=== PATIENT | female | born 1985 | race Caucasian/White ===

== ENCOUNTER 2022-03-05 20:00 | Inpatient (IN) | payer OTHER ==
[2022-03-05] MEDS ORDERED: DINOPROSTONE 10 MG VAGINAL SUPPOSITORY VG ONE (21:15)
[2022-03-05 21:46] LABS: BASO % 0.3 % (0-2.0); EOS % 0.7 % (0-4.5); HEMATOCRIT 34.4 % (32.4-45.2); HEMOGLOBIN 11.9 GM/dL (10.7-15.3); LYMPH % 18.2 % (8-40); MCH 29.5 pg (25.7-33.7); MCHC 34.6 g/dl (32.0-36.0); MEAN CELL VOLUME 85.3 fl (80-96); MEAN PLT VOLUME 7.6 fl (7.5-11.1); NEUT % 75.8 % (42.8-82.8); PLATELET COUNT 206 10^3/uL (134-434); RBC 4.03 M/mm3 (3.60-5.2); WHITE BLOOD COUNT 10.7 K/mm3 (4.0-10.0)
[2022-03-05 21:56] LABS: INR 1.01 (0.83-1.09); PROTHROMBIN TIME (PATIENT) 11.6 SEC (9.7-13.0)
[2022-03-05 21:59] LABS: ACTIVATED PTT 25.5 SECONDS (25.2-36.5)
[2022-03-05 22:23] LABS: CALCIUM 9.1 mg/dL (8.5-10.1)
[2022-03-05 22:29] LABS: CREATININE 0.4 mg/dL (0.55-1.3)
[2022-03-05 22:34] VITALS: BMI 44.9
[2022-03-05 23:18] LABS: HIV INTERPRETATION NEGATIVE (NEGATIVE)
[2022-03-06] MEDS ORDERED: ACETAMINOPHEN 325 MG TABLET (FP) PO ONE (06:00)
[2022-03-06] MEDS ORDERED: DEXTROSE 5%-LACTATED RINGERS 1,000 ML IV SCH ×2 (06:00→08:45)
[2022-03-06] MEDS ORDERED: ACETAMINOPHEN 325 MG TABLET (FP) ONE (06:11)
[2022-03-06] MEDS ORDERED: PROMETHAZINE HCL 25 MG/1 ML VIAL IVPUSH ONE (08:31)
[2022-03-06] MEDS ORDERED: BUTORPHANOL TARTRATE 1 MG/ML VIAL IVPB ONE (08:31)
[2022-03-06] MEDS ORDERED: OXYTOCIN 30 UNITS in 0.9% NS 30 UNIT/500 ML INFUS.BAG IVPB SCH (08:45)
[2022-03-06] MEDS: LABETALOL HCL 100 MG TABLET (FP) PO SCH ×3 (09:45→21:20)
[2022-03-06] MEDS ORDERED: PROMETHAZINE HCL 25 MG/1 ML VIAL IVPB ONE (09:45)
[2022-03-06] MEDS ORDERED: BUTORPHANOL TARTRATE 2 MG/ML VIAL ONE (10:19)
[2022-03-06] MEDS ORDERED: PROMETHAZINE HCL 25 MG/1 ML VIAL ONE (10:19)
[2022-03-06] MEDS ORDERED: FENTANYL/BUPIVACAINE/NS/PF - PCEA - 50 ML DISP.SYRIN EP ONE (14:18)
[2022-03-06] MEDS ORDERED: NALOXONE HCL 0.4 MG/ML VIAL IVPUSH PRN (14:22)
[2022-03-06] MEDS ORDERED: BUPIVACAINE HCL/PF 0.25% (2.5MG/ML) 10 ML VIAL ONE (14:24)
[2022-03-06] MEDS ORDERED: FENTANYL/BUPIVACAINE/NS/PF - PCEA - 50 ML DISP.SYRIN EP SCH (14:30)
[2022-03-06] MEDS ORDERED: BENZOCAINE 20% 57 GM BOTTLE TP PRN (15:59)
[2022-03-06] MEDS ORDERED: BENZOCAINE 28 GM HEMORRHOIDAL OINTMENT TP PRN (15:59)
[2022-03-06] MEDS ORDERED: BISACODYL 10 MG SUPP.RECT RC PRN (15:59)
[2022-03-06] MEDS ORDERED: METHYLERGONOVINE MALEATE 0.2 MG/1 ML AMP IM PRN (15:59)
[2022-03-06] MEDS ORDERED: ACETAMINOPHEN 325 MG TABLET (FP) PO PRN (15:59)
[2022-03-06] MEDS ORDERED: oxyCODONE HCL 5 MG TABLET PO PRN (15:59)
[2022-03-06] MEDS ORDERED: IBUPROFEN 600 MG TABLET (FP) PO PRN (15:59)
[2022-03-06] MEDS ORDERED: WITCH HAZEL 50% (TUCKS) 40 PAD/JAR PAD TP PRN (15:59)
[2022-03-06] MEDS ORDERED: OXYTOCIN 20 UNITS in 0.9% NS 20 UNIT/1,000 ML INFUS.BAG IV SCH (16:00)
[2022-03-07 06:52] LABS: BASO % 0.3 % (0-2.0); EOS % 0.3 % (0-4.5); HEMATOCRIT 33.3 % (32.4-45.2); HEMOGLOBIN 11.5 GM/dL (10.7-15.3); LYMPH % 16.2 % (8-40); MCH 29.2 pg (25.7-33.7); MCHC 34.5 g/dl (32.0-36.0); MEAN CELL VOLUME 84.6 fl (80-96); MEAN PLT VOLUME 7.8 fl (7.5-11.1); MONO % 7.2 % (3.8-10.2); PLATELET COUNT 193 10^3/uL (134-434); RBC 3.94 M/mm3 (3.60-5.2); RDW 14.9 % (11.6-15.6); WHITE BLOOD COUNT 13.3 K/mm3 (4.0-10.0)
[2022-03-07 09:35] VITALS: RESP 18
[2022-03-07] MEDS: PRENATAL VITAMINS W/ FOLIC ACID TABLET (FP) PO SCH (10:17)
[2022-03-07] MEDS: LABETALOL HCL 100 MG TABLET (FP) PO SCH ×2 (10:18→21:32)
[2022-03-07] MEDS ORDERED: SENNOSIDES/DOCUSATE COMBO (SENNA PLUS) TABLET (UD) PO PRN (22:00)
[2022-03-08] MEDS: PRENATAL VITAMINS W/ FOLIC ACID TABLET (FP) PO SCH (09:40)
[2022-03-08] MEDS: LABETALOL HCL 100 MG TABLET (FP) PO SCH (09:40)
[2022-03-08 10:23] VITALS: TEMP 97.7
[2022-03-08 11:16] VITALS: BP 116/83; PULSE 84
== END 2022-03-08 13:00 | disposition home or self-care (01) | DRG 807 ==
LOC: JLDR 20:00 → J3W 03-06 17:30
PROVIDERS: ADMIT Obstetrics & Gynecology; ATTEND Obstetrics & Gynecology
PROC: 3E0P7VZ Introduction of Hormone into Female Reproductive, Via Natural or Artificial Opening (ICD-10-PCS; 2022-03-05)
PROC: 10E0XZZ Delivery of Products of Conception, External Approach (ICD-10-PCS; principal; 2022-03-06)
DX: O16.4 Unspecified maternal hypertension, complicating childbirth (principal); Z37.0 Single live birth; O99.214 Obesity complicating childbirth; E66.01 Morbid (severe) obesity due to excess calories; O69.81X0 Labor and delivery complicated by cord around neck, without compression, not applicable or unspecified; O70.0 First degree perineal laceration during delivery; Z3A.38 38 weeks gestation of pregnancy
CPT/HCPCS: 36415; 59409; 80048; 85025; 85610; 85730; 86780; 86850; 86900; 86901; 87389; C9803-CS; U0003; U0005